=== PATIENT | male | born 1945 | race Hispanic/Latino ===

== ENCOUNTER 2017-05-23 06:55 | Day surgery (SDC) | payer BC, MEDICARE ==
[2017-05-21 16:55] VITALS: BP 116/69
[2017-05-21 16:59] LABS: BASOPHILS % (AUTO) 0.3 % (0.0-5.0); EOSINOPHILS % (AUTO) 1.8 % (0.0-8.0); HEMATOCRIT 44.1 % (42-54); MEAN CORPUSCULAR HEMOGLOBIN 27.5 pg (27.0-33.0); MEAN CORPUSCULAR VOLUME 81.1 fL (79-99); MONOCYTES % (AUTO) 9.1 % (3.0-13.0); NEUTROPHILS % (AUTO) 63.8 % (40.0-77.0); PLATELET COUNT (AUTO) 159 K/uL (130-400); RED BLOOD CELL COUNT(AUTO) 5.44 MIL/uL (4.50-6.20); RED CELL DISTRIBUTION WIDTH 15.6 % (11.0-15.5); WHITE BLOOD COUNT (AUTO) 8.3 K/uL (4.8-10.8)
[2017-05-21 17:05] LABS: CREATININE 1.2 mg/dL (0.5-1.5)
[2017-05-21 17:08] LABS: INR 1.08 (0.85-1.15); PARTIAL THROMBOPLASTIN TIME 30.6 SEC (26.3-35.5); PROTHROMBIN TIME 11.3 SEC (9.6-11.6)
[~2017-05-23] VITALS: Ht 182.9 cm; Wt 132.4 kg
[~2017-05-23 06:55] MED LIST: APIX5TAB PO; ASPI-1197 PO; CALC-1062 PO; DICLOFENAC PO; DRON400T2 PO; FURO40TA5 PO; METO25TA3 PO; MULT-1258 PO; OLME20TA10 PO; ROSU5TAB18 PO; SODIUM CHLORIDE 0.9% 1000ML 1,000 ML IV SCH
[2017-05-23 07:05] VITALS: BP 116/75
[2017-05-23] MEDS ORDERED: TYL3 PO (08:18)
[2017-05-23] MEDS ORDERED: PROPOFOL 10 MG/ML 20ML VIAL IV ONE (08:50)
[2017-05-23] MEDS ORDERED: LIDOCAINE HCL 1% 20 ML VIAL ONE (08:51)
[2017-05-23 09:15] VITALS: BP 102/62
[2017-05-23 09:30] VITALS: BP 99/64
== END 2017-05-23 10:27 | disposition home or self-care (01) ==
LOC: ENDO 06:55 → DAH 06:55 → ENDO 10:27
PROVIDERS: ATTEND Internal Medicine Cardiovascular Disease
DX: I48.1 Persistent atrial fibrillation (principal); I25.10 Atherosclerotic heart disease of native coronary artery without angina pectoris; I10 Essential (primary) hypertension; Z79.82 Long term (current) use of aspirin; Z79.01 Long term (current) use of anticoagulants; Z79.899 Other long term (current) drug therapy
CPT/HCPCS: 36415; 80048; 85025; 85610; 85730; 92960; 93005; A4606; J2704; J7030

== ENCOUNTER 2019-01-29 08:10 | Day surgery (SDC) | payer BC, MEDICARE ==
[~2019-01-29] VITALS: Ht 182.9 cm; Wt 129.3 kg
[2019-01-29] VITALS (13 sets, daily range): BP systolic 86–112; BP diastolic 61–78
[~2019-01-29 08:10] MED LIST changes: +AMIO200T5 PO; -DICLOFENAC PO; -DRON400T2 PO; +ROSU5TAB12 PO; -ROSU5TAB18 PO; -SODIUM CHLORIDE 0.9% 1000ML 1,000 ML IV SCH; +TYL3 PO
--- NOTE | 2019-01-29 08:40 | NUR ---
PATIENT ARRIVED PATIENT ARRIVED TO DAY PATIENT ACCOMPANIED BY SPOUSE (HORACIO). PATIENT AAOX3, RESPIRATIONS UNLABORED, VITAL SIGNS STABLE, DENIES ANY PAIN AT THIS TIME. PROCEDURE VERIFIED AND CONFIRMED WITH PATIENT. HOSPITAL ROUTINE EXPLAINED TO PATIENT AND SPOUSE AND BOTH VERBALIZED UNDERSTANDING. ALL QUESTIONS/CONCERNS ADDRESSED.
[2019-01-29 09:24] LABS: BASOPHILS % (AUTO) 0.3 % (0.0-5.0); EOSINOPHILS % (AUTO) 3.1 % (0.0-8.0); HEMATOCRIT 47.2 % (42-54); LYMPHOCYTES % (AUTO) 19.6 % (21.0-51.0); MEAN CORPUSCULAR HEMOGLOBIN 27.4 pg (27.0-33.0); MEAN CORPUSCULAR HGB CONC 33.3 g/dL (32.0-36.0); MEAN CORPUSCULAR VOLUME 82.2 fL (79-99); MONOCYTES % (AUTO) 8.9 % (3.0-13.0); NEUTROPHILS % (AUTO) 68.1 % (40.0-77.0); NUCLEATED RED BLOOD CELLS 0.1 % (0.0-0.19); PLATELET COUNT (AUTO) 139 K/uL (130-400); RED BLOOD CELL COUNT(AUTO) 5.74 MIL/uL (4.50-6.20); RED CELL DISTRIBUTION WIDTH 16.7 % (11.0-15.5); WHITE BLOOD COUNT (AUTO) 8.4 K/uL (4.8-10.8)
[2019-01-29 09:28] LABS: CREATININE 1.3 mg/dL (0.5-1.5); POTASSIUM 4.2 mmol/L (3.5-5.1)
[2019-01-29 09:32] LABS: INR 1.11 (0.85-1.15); PARTIAL THROMBOPLASTIN TIME 32.5 SEC (26.3-35.5); PROTHROMBIN TIME 11.6 SEC (9.6-11.6)
[2019-01-29] MEDS ORDERED: SERT100T12 PO (09:35)
[2019-01-29] MEDS ORDERED: CLON0.252 PO (09:36)
[2019-01-29] MEDS ORDERED: ASPI-1026 PO (09:37)
[2019-01-29] MEDS ORDERED: ESOM20CA31 PO (09:45)
[2019-01-29] MEDS ORDERED: FURO40TA5 PO (09:47)
[2019-01-29] MEDS ORDERED: SODIUM CHLORIDE 0.9% 1000ML 1,000 ML IV ONE (11:04)
[2019-01-29] MEDS ORDERED: SODIUM CHLORIDE 0.9% 1000ML 1,000 ML IV SCH (11:15)
[2019-01-29] MEDS ORDERED: PROPOFOL 10 MG/ML 20ML VIAL IV ONE (12:12)
--- NOTE | 2019-01-29 12:45 | NUR ---
CARDIOVERSION 1230 DR HURLEY IN ROOM, EXPLAINED PROCEDURE TO PATIENT AND PATIENT'S SPOUSE. 1232 TIMEOUT DONE BY CHARISMA ALARCON 1233 FIRST IV PUSH PROPOFOL ADMINISTERED BY DR MATTHEWS 1234 SHOCK ADMINISTERED [address] HURLEY 1234 SECOND IV PUSH PROPOFOL ADMINISTERED BY DR MATTHEWS 1235 SECOND SHOCK ADMINISTERED [address] HURLEY 1240 DR HURLEY LEFT PATIENT'S ROOM
--- NOTE | 2019-01-29 13:35 | NUR ---
DISCHARGE INSTRUCTIONS DISCHARGE INSTRUCTIONS PROVIDED TO PATIENT'S SPOUSE AND FOLLOW UP APPOINTMENT WELL. HANDOUTS PROVIDED AND INSTRUCTIONS GIVEN REGARDING POST SEDATION CARE AND POST CARDIOVERSION CARE. PATIENT'S SPOUSE VERBALIZED UNDERSTANDING. ALL QUESTIONS/CONCERNS ADDRESSED.
--- NOTE | 2019-01-29 13:50 | NUR ---
PATIENT DISCHARGED FROM FACILITY VIA WHEELCHAIR BY BRITNI VALENTINO. PATIENT ASSISTED INTO PRIVATE VEHICLE DRIVEN BY SPOUSE
== END 2019-01-29 13:50 | disposition home or self-care (01) ==
LOC: DAH 08:10
PROVIDERS: ATTEND Internal Medicine Cardiovascular Disease
DX: I48.0 Paroxysmal atrial fibrillation (principal); I10 Essential (primary) hypertension; E78.5 Hyperlipidemia, unspecified; E66.9 Obesity, unspecified; G47.33 Obstructive sleep apnea (adult) (pediatric); C61 Malignant neoplasm of prostate; F41.9 Anxiety disorder, unspecified; Z68.38 Body mass index [BMI] 38.0-38.9, adult; Z79.82 Long term (current) use of aspirin; Z79.899 Other long term (current) drug therapy; Z79.01 Long term (current) use of anticoagulants; Z98.890 Other specified postprocedural states; Z95.0 Presence of cardiac pacemaker; Z87.01 Personal history of pneumonia (recurrent); Z82.49 Family history of ischemic heart disease and other diseases of the circulatory system; Z82.3 Family history of stroke
CPT/HCPCS: 36415; 80048; 85025; 85610; 85730; 92960; 93005; A4215; A4216; A4221; A4222; A4223 ×3; A4606; A4663; J2704; J7030; 99156

== ENCOUNTER 2024-04-26 09:32 | Inpatient (IN) | payer MEDICARE ==
[~2024-04-26] VITALS: Ht 188 cm; Wt 124.3 kg
[~2024-04-26 09:32] MED LIST changes: +AEC81 PO; -AMIO200T5 PO; -ASPI-1197 PO; -FURO40TA5 PO; +LEVO25CA4 PO; +METO2.5T2 PO; -METO25TA3 PO; +METO5TAB7 PO; -OLME20TA10 PO; +OLME20TA73 PO; +POTA-200 PO; -ROSU5TAB12 PO; +ROSU5TAB51 PO; +SPIR25TA6 PO; +TAFA61CA PO; +TORS20TA4 PO; -TYL3 PO
[2024-04-26 10:06] LABS: BASOPHILS # (AUTO) 0.04 K/uL (0.00-0.20); BASOPHILS % (AUTO) 0.4 % (0.0-5.0); EOSINOPHILS # (AUTO) 0.12 K/uL (0.00-0.70); EOSINOPHILS % (AUTO) 1.2 % (0.0-8.0); HEMATOCRIT 36.5 % (42-54); IMMATURE GRANULOCYTE ABSOLUTE 0.06 K/uL (0-1); LYMPHOCYTES # (AUTO) 1.5 K/uL (1.0-4.8); LYMPHOCYTES % (AUTO) 14.4 % (21.0-51.0); MEAN CORPUSCULAR HGB CONC 29.3 g/dL (32.0-36.0); MEAN CORPUSCULAR VOLUME 68.2 fL (79-99); MONOCYTES # (AUTO) 1.1 K/uL (0.1-1.0); MONOCYTES % (AUTO) 10.4 % (3.0-13.0); NEUTROPHILS # (AUTO) 7.5 K/uL (1.8-7.7); PLATELET COUNT (AUTO) 219 K/uL (130-400); RED BLOOD CELL COUNT(AUTO) 5.35 MIL/uL (4.50-6.20); RED CELL DISTRIBUTION WIDTH 20.4 % (11.0-15.5); WHITE BLOOD COUNT (AUTO) 10.2 K/uL (4.8-10.8)
[2024-04-26 10:16] LABS: CREATININE 1.5 mg/dL (0.5-1.3); POTASSIUM 4.5 mmol/L (3.5-5.1)
[2024-04-26] MEDS: morPHINE 2 MG SYG IVP ONE (10:42)
[2024-04-26] MEDS: furoSEMIDE 40MG VIAL IV ONE (10:43)
[2024-04-26 10:46] LABS: B-TYPE NATRIURETIC PEPTIDE 223 pg/mL (0-100)
--- NOTE | 2024-04-26 10:53 | HMCIMG ---
CHEST 1VW CLINICAL HISTORY: CHEST PAIN COMPARISON: 06/27/2022 TECHNIQUE: Single view of the chest was obtained. FINDINGS: Lungs are clear. Cardiac size is enlarged but stable. The bony structures and pacemaker are unchanged. IMPRESSION: Cardiomegaly.
--- NOTE | 2024-04-26 11:01 | ERN ---
ED Note History of Present Illness Stated Complaint: CP, NAUSEA Chief Complaint: Chest Pain Time Seen by MD: 09:35 Dictation: 79-year-old male with a history of CABG and pacemaker presents to the ED for evaluation of chest pain onset 4 days ago. Patient reports shortness of breath, nausea, but denies any vomiting or other associated symptoms at this time. As per family, patient was seen at [facility] 4 days ago where he had EKG and lab work performed which were normal and was discharged home, but mentioned patient has been complaining of chest pain. [employer] Super[employer]- [facility] Allergies: Coded Allergies: No Known Drug Allergies (Verified Allergy, Unknown, 11/26/17) triamcinolone (Unverified Allergy, Unknown, 11/26/17) Home Meds Reported Medications Aspirin (ASPIRIN 81 MG ECTAB) 81 Mg Ectab, 81 MG PO DAILY, TAB.EC 06/27/22 Potassium Chloride (Potassium Chloride) 10 Meq Tab.er.prt, 10 MEQ PO BID 06/27/22 Levothyroxine Sodium (Levothyroxine) 25 Mcg Capsule, 25 MCG PO ACBKFST, CAP 06/27/22 Metolazone (Metolazone) 2.5 Mg Tablet, 2.5 MG PO QWEEK, TAB 06/27/22 Spironolactone (Spironolactone) 25 Mg Tablet, 25 MG PO DAILY, TAB 06/27/22 Metolazone (Metolazone) 5 Mg Tablet, 5 MG PO DAILY PRN for WEIGHT GAIN, TAB 06/27/22 Torsemide (Torsemide) 20 Mg Tablet, 40 MG PO DAILY, TAB 06/27/22 Tafamidis (Vyndamax) 61 Mg Capsule, 61 MG PO DAILY, CAP 06/27/22 Calcium Carbonate/Vitamin D3 (Caltrate 600 + D Soft Chew Tab) 1 Each Tab.chew, 2 EACH PO DAILY, TAB.CHEW 04/24/16 Apixaban (Eliquis) 5 Mg Tablet, 5 MG PO BID, TAB 04/24/16 Rosuvastatin Calcium (Rosuvastatin Calcium) 5 Mg Tablet, 5 MG PO DAILYDINNER, TAB 01/02/16 Multivits-Min/FA/Lycopene/Lut (Centrum Silver Tablet) 1 Each Tablet, 1 EACH PO DAILY, TAB 01/02/16 Olmesartan Medoxomil (Benicar) 20 Mg Tablet, 20 MG PO DAILY, TAB 11/23/13 Past Medical History Past Medical History: A-Fib, High Cholesterol, Heart Disease, Hypertension, Prostatitis Additional Past Medical Hx: THYROID, HX OF PROSTATE CA, AORTIC STENOSIS, GOUT Surgical History: Pacer/AICD Surgical History Other: KNEE, SHOULDER, BACK Review of System Dictation Constitutional: Negative for fever,chills, and weight loss Eyes: Negative for injury, pain,redness, and discharge ENT: Negative for injury,pain or swelling Cardiovascular: Positive for chest pain negative I palpitations, and edema Respiratory: Negative for shortness of breath, cough, and wheezing, Abdomen/GI: Negative for abdominal pain, nausea, vomiting, diarrhea, and constipation Back: Negative for injury and pain : Negative for injury, bleeding and discharge MS/Extremity: Negative for injury and deformity Skin: Negative for rash, and discoloration Neuro: Negative for headache, weakness, numbness, tingling, and seizure Psych: Negative for suicide ideation, homicidal ideation, and hallucinations Initial Vital Sign VS Vital Signs Date Time Temp Pulse Resp B/P (MAP) Pulse Ox O2 Delivery O2 Flow Rate FiO2 04/26/24 09:33 98.1 53 16 112/59 99 Room Air 0 04/26/24 09:39 21 Physical Exam Dictation General: awake, alert, patient appears uncomfortable Head/Face: Normocephalic, atraumatic Eyes: PERRL, EOMI, vision at baseline ENT: oral cavity clear, TMs clear, no signs of infection Neck: Trachea midline, supple, no nuchal rigidity Cardiovascular: RRR, normal S1/S2, No MRGs, no JVD Respiratory: Diminished breath sounds at bases, bilateral crackles Abdomen: Soft, non-tender, non-distended, normal bowel sounds, no guarding or rebound. Skin: Warm, dry, normal turgor, no rash MS/Extremity: Pulses equal, no cyanosis, neurovascular intact, FROM Neuro: COAx4, GCS 15, strength 5/5, CN 2-12 intact, normal cerebellar exam, normal gait, Psych: Normal behavior, mood, and affect normal Results (Laboratory/Radiology) Laboratory/Radiology Laboratory Tests Test 04/26/24 09:57 04/26/24 10:18 04/26/24 11:35 White Blood Count 10.2 K/uL (4.8-10.8) Red Blood Count 5.35 MIL/uL (4.50-6.20) Hemoglobin 10.7 g/dL (14.0-18.0) L Hematocrit 36.5 % (42-54) L Mean Corpuscular Volume 68.2 fL (79-99) L Mean Corpuscular Hemoglobin 20.0 pg (27.0-33.0) L Mean Corpuscular Hemoglobin Concent 29.3 g/dL (32.0-36.0) L Red Cell Distribution Width 20.4 % (11.0-15.5) H Platelet Count 219 K/uL (130-400) Mean Platelet Volume fL (7.5-10.5) Immature Granulocyte % (Auto) 0.6 % (0-1) Neutrophils (%) (Auto) 73.0 % (40.0-77.0) Lymphocytes (%) (Auto) 14.4 % (21.0-51.0) L Monocytes (%) (Auto) 10.4 % (3.0-13.0) Eosinophils (%) (Auto) 1.2 % (0.0-8.0) Basophils (%) (Auto) 0.4 % (0.0-5.0) Neutrophils # (Auto) 7.5 K/uL (1.8-7.7) Lymphocytes # (Auto) 1.5 K/uL (1.0-4.8) Monocytes # (Auto) 1.1 K/uL (0.1-1.0) H Eosinophils # (Auto) 0.12 K/uL (0.00-0.70) Basophils # (Auto) 0.04 K/uL (0.00-0.20) Absolute Immature Granulocyte (auto 0.06 K/uL (0-1) Nucleated Red Blood Cells 0.0 % (0.0-0.19) Red Blood Cell Morphology See comments Sodium Level 136 mmol/L (136-145) Potassium Level 4.5 mmol/L (3.5-5.1) Chloride Level 99 mmol/L (101-111) L Carbon Dioxide Level 30 mmol/L (21-32) Blood Urea Nitrogen 38 mg/dL (7-18) H Creatinine 1.5 mg/dL (0.5-1.3) H Glomerular Filtration Rate Calc 47 mL/min (>90) Random Glucose 162 mg/dL (70-105) H Total Calcium 9.7 mg/dL (8.5-10.1) Total Creatine Kinase 55 U/L (21-232) B-Type Natriuretic Peptide 223 pg/mL (0-100) H Troponin I < 0.05 ng/mL (0.00-0.05) Urine Color LIGHT-YELLOW (YELLOW) Urine Appearance CLEAR (CLEAR) Urine pH 6.5 (5.0-8.0) Urine Specific [place] 1.007 (1.001-1.031) Urine Protein NEGATIVE mg/dL (NEGATIVE) Urine Glucose (UA) NEGATIVE mg/dL (NEGATIVE) Urine Ketones NEGATIVE mg/dL (NEGATIVE) Urine Occult Blood NEGATIVE (NEGATIVE) Urine Nitrate NEGATIVE (NEGATIVE) Urine Bilirubin NEGATIVE mg/dL (NEGATIVE) Urine Urobilinogen 0.2 mg/dL (0.2-1.0) Urine Leukocyte Esterase NEGATIVE Rosi/uL Labs Reviewed?: Yes EKG Comment: EKG 04/26/2024 time 9:39 a.m. ventricular rate 82, [place] 58, QRS D 166, QT 403. Ventricular paced complexes. Anterior T-waves. No STEMI Ultrasound Comment: REASON: CHEST PAIN ORDERING PHYSICIAN: LENY JIMENEZ MD PROCEDURE: CXR1VW - CHEST 1VW CHEST 1VW CLINICAL HISTORY: CHEST PAIN COMPARISON: 06/27/2022 TECHNIQUE: Single view of the chest was obtained. FINDINGS: Lungs are clear. Cardiac size is enlarged but stable. The bony structures and pacemaker are unchanged. IMPRESSION: Cardiomegaly. DICTATED BY: SONJA HARDING DO DATE: 04/26/24 1051 ED Course ED Course Orders Procedure Category Date Status Time Vital Signs Per CPOE 04/26/24 Transmitted Routine 09:38 B-Type Natriuretic LAB 04/26/24 Complete Peptide 09:38 Chest 1vw RAD 04/26/24 Resulted 09:38 12 Lead Ekg Tracing- EKG 04/26/24 Logged Technical 09:38 Oxygen By Nc/Pulse Ox CPOE 04/26/24 Transmitted 09:38 Maintain Iv CPOE 04/26/24 Transmitted 09:38 Iv Insertion CPOE 04/26/24 Transmitted 09:38 Cardiac Monitoring CPOE 04/26/24 Transmitted 09:38 Pulse Oximetry With CPOE 04/26/24 Transmitted Vs And Prn 09:38 Cbc With Differential LAB 04/26/24 Complete 09:38 Activity: Br W/Brp CPOE 04/26/24 Transmitted With Assist 09:38 Creatine Kinase, Total LAB 04/26/24 Complete 09:38 Urinalysis Profile LAB 04/26/24 Complete 09:38 Troponin Poc Order LAB 04/26/24 Complete Only 09:38 Bedside Troponin-I LAB.ER 04/26/24 In Process (Poc) 09:38 Basic Metabolic Panel LAB 04/26/24 Complete 09:38 Furosemide 40mg Vial PHA 04/26/24 Complete (Lasix 40mg Vial) 10:30 Morphine 2mg Syg PHA 04/26/24 Complete (Morphine 2mg Syg) 10:30 Vital Signs Date Time Temp Pulse Resp B/P (MAP) Pulse Ox O2 Delivery O2 Flow Rate FiO2 04/26/24 12:39 97.9 53 20 118/77 98 Room Air* 0 21 04/26/24 10:16 98.1 89 23 126/73 100 Nasal Cannula* 2 28 04/26/24 09:39 98.1 53 16 112/59 99 Room Air* 0 21 04/26/24 09:33 98.1 53 16 112/59 99 Room Air 0 HEART Score Response (Comments) Value History: Moderate suspicion (+1) 1 EKG: Repolarization changes 1 Age: > 65yrs (+2) 2 Risk Factors: No known risk factors (0) 0 Initial Troponin: Normal limit (0) 0 HEART Score Risk: Mod Risk for MACE (4-6) Total 4 Medical Decision Making MDM MDM : Differential diagnosis: Chest pain, unstable angina, rule out ACS 1221- Patient is leaving AMA 1238- Patient changed his mind and will stay for admission 1258- Dr. Parker consult, accepts patient for admission Rationale: Tests considered and ordered secondary to shared decision making include: labs, ECG and radiology Risk of complication and/or morbidity or mortality of patient management: None Medications-Per medication reconciliation Need for hospitalization: Patient does meet criteria for hospitalization. Need for emergency major/minor surgery: No There are no social concerns with this patient. I independently interpreted the test that were performed, results were reviewed by me and considered findings on radiology if ordered. Medical management and examination interpretation discussions were had by me with other qualified healthcare professionals as indicated for the patient's care. DX & DISP Disposition: Inpatient Decision to Admit Date: Apr 26, 2024 Decision to Admit Time: 13:02 Departure Impression: Primary Impression: Chest pain Additional Impression: Rule out ACS Condition: Against Medical Advice Referrals: NONE (PCP) LENY JIMENEZ MD Apr 26, 2024 11:01
[2024-04-26 11:42] LABS: APPEARANCE,URINE CLEAR (CLEAR); BILIRUBIN,URINE NEGATIVE (NEGATIVE); GLUCOSE, URINE (UA) NEGATIVE (NEGATIVE); KETONES,URINE NEGATIVE (NEGATIVE); LEUKOCYTE ESTERASE ,URINE NEGATIVE Leu/uL (NEGATIVE); NITRATE,URINE NEGATIVE (NEGATIVE); OCCULT BLOOD,URINE NEGATIVE (NEGATIVE); PH,URINE 6.5 (5.0-8.0); PROTEIN,URINE NEGATIVE (NEGATIVE); UROBILINOGEN,URINE 0.2 mg/dL (0.2-1.0)
[2024-04-26 11:43] LABS: ADD UA MICROSCOPIC NO; COLOR,URINE LIGHT-YELLOW (YELLOW)
--- NOTE | 2024-04-26 12:40 | NUR ---
PATIENT STATES HE WANTS TO GO AMA. DR LIVINGSTON MADE AWARE. PATIENT DECIDED TO STAY. CHARGE NURSE RADHA ALSO SPOKE WITH PATIENT
[2024-04-26] MEDS ORDERED: ondanSETRON 4MG INJ IVP PRN (14:00)
[2024-04-26] MEDS ORDERED: BUDESONIDE 0.5 MG/2 ML INH IH SCH (14:00)
[2024-04-26] MEDS ORDERED: acetaMINOPHEN 325 MG TAB PO PRN ×2 (14:00→14:30)
[2024-04-26] MEDS ORDERED: NITROGLYCERIN 0.4 MG SL TAB SL PRN (14:30)
[2024-04-26] MEDS ORDERED: TORS20TA4 PO (14:33)
[2024-04-26] MEDS ORDERED: ASPI-1443 PO (14:33)
[2024-04-26] MEDS ORDERED: METO25TA6 PO (14:33)
[2024-04-26] MEDS ORDERED: SPIR25TA6 PO (14:33)
[2024-04-26] MEDS ORDERED: ROSU5TAB51 PO (14:33)
[2024-04-26] MEDS ORDERED: METO2.5T2 PO (14:33)
[2024-04-26] MEDS ORDERED: POTA-202 PO (14:33)
[2024-04-26] MEDS: cefTRIAXone 1G VIAL IVPB SCH (14:53)
[2024-04-26] MEDS: PANTOPrazole 40 MG/VIAL IVP SCH (14:53)
[2024-04-26 15:19] LABS: SARS-CoV-2, RNA, NAAT NEGATIVE SARS CoV-2 (NEGATIVE)
[2024-04-26 15:25] LABS: INFLUENZA TYPE A Negative For Type A (NEGATIVE); INFLUENZA TYPE B Negative For Type B (NEGATIVE)
--- NOTE | 2024-04-26 16:09 | CONS ---
[facility] CARDIOLOGY CONSULTATION NOTE Date Patient Seen: Apr 26, 2024 Time of Visit: 16:01 Requesting Physician: [ ] Reason for Consultation: [ ] History of Present Illness: [For about four days the patient has been experiencing vague pain in his chest. This began as a retrosternal/right parasternal pain which was intense for about half a day, then he had a similar residual discomfort that has persisted for three more days. Pain is not exacerbated by deep inspiration, change of position, cough, or any other activity or lack of activity. Patient has been sedentary because he does not have much energy and experiences overwhelming fatigue. 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 Patient also has a history of paroxysmal atrial fibrillation. 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 [Denies] alcohol consumption. [Denies] illicit drug use Home Meds: [ ] Current Meds: [ ] Review of Systems: CONST: [No fever, fatigue, or weight changes.] EYES: [No recent vision problems.] ENT: [No congestion, ear pain, or sore throat.] C/V: [Admits chest pain, denies palpitations, no change in chronic edema.] RESP: [No cough, congestion, reports wheezing, chronically ill patient minimizes complaints of shortness of breath.] GI: [No abdominal pain, nausea, vomiting, constipation, or diarrhea.] : [No incontinence or dysuria.] SKIN: [Chronic stasis edema both lower extremities.] NEURO: [No headache, focal numbness or weakness, dizziness, or seizures. Denies stroke or TIA] PSYCH: [No depression or anxiety.] HEME: [No abnormal bruising or bleeding.] LYMPH: [No swollen glands.] Physical Examination: GENERAL: [Appears mildly breathless and after minimal activity exhibits paradoxical respiration but is oriented and alert and cooperative.] HEAD: [Normal with no signs of head trauma.] EYES: [PERRLA, EOMI, conjunctiva and sclera normal.] ENT: [Hearing grossly intact.] NECK: [JVD to the angle of the mandible in a 30 degree upright position Normal carotid upstrokes without bruits.] LUNGS: [Scattered expiratory wheezing and rhonchi, no rales, diffusely diminished breath sounds.] HEART: [Normal rate and rhythm. Normal S1 and S2 without mumurs, gallop or rub.] VASC: [2+ bipedal brawny edema.] ABD: [Bowel sounds normal, soft, nontender, no masses, no organomegaly. No audible bruits. Abdomen protuberant but can not discern presence or absence of ascites] : [Not examined] LYMPH: [Bipedal lymphadenopathy with thickened, rough, red and warm skin.] EXT: [No clubbing, cyanosis but 2+ brawny edema.] SKIN: [Chronic stasis changes with cellulitis both lower extremities from the calf down, no open ulcers.] NEURO: [Awake, alert, and oriented x3. .] Vital Signs (last 8hr) Date Time Temp Pulse Resp B/P (MAP) Pulse Ox O2 Delivery O2 Flow Rate FiO2 04/26/24 15:06 97.7 59 20 112/55 100 Room Air* 0 21 04/26/24 12:39 97.9 53 20 118/77 98 Room Air* 0 21 04/26/24 10:16 98.1 89 23 126/73 100 Nasal Cannula* 2 28 04/26/24 09:39 98.1 53 16 112/59 99 Room Air* 0 21 04/26/24 09:33 98.1 53 16 112/59 99 Room Air 0 Laboratory: [ ] Hematology Labs: Test 04/26/24 09:57 Range/Units White Blood Count 10.2 4.8-10.8 K/uL Red Blood Count 5.35 4.50-6.20 MIL/uL Hemoglobin 10.7 L 14.0-18.0 g/dL Hematocrit 36.5 L 42-54 % Mean Corpuscular Volume 68.2 L 79-99 fL Mean Corpuscular Hemoglobin 20.0 L 27.0-33.0 pg Mean Corpuscular Hemoglobin Concent 29.3 L 32.0-36.0 g/dL Red Cell Distribution Width 20.4 H 11.0-15.5 % Platelet Count 219 130-400 K/uL Mean Platelet Volume 7.5-10.5 fL Immature Granulocyte % (Auto) 0.6 0-1 % Neutrophils (%) (Auto) 73.0 40.0-77.0 % Lymphocytes (%) (Auto) 14.4 L 21.0-51.0 % Monocytes (%) (Auto) 10.4 3.0-13.0 % Eosinophils (%) (Auto) 1.2 0.0-8.0 % Basophils (%) (Auto) 0.4 0.0-5.0 % Neutrophils # (Auto) 7.5 1.8-7.7 K/uL Lymphocytes # (Auto) 1.5 1.0-4.8 K/uL Monocytes # (Auto) 1.1 H 0.1-1.0 K/uL Eosinophils # (Auto) 0.12 0.00-0.70 K/uL Basophils # (Auto) 0.04 0.00-0.20 K/uL Absolute Immature Granulocyte (auto 0.06 0-1 K/uL Nucleated Red Blood Cells 0.0 0.0-0.19 % Red Blood Cell Morphology See comments Chemistry Labs: Test 04/26/24 10:18 04/26/24 09:57 Range/Units Troponin I < 0.05 0.00-0.05 ng/mL Sodium Level 136 136-145 mmol/L Potassium Level 4.5 3.5-5.1 mmol/L Chloride Level 99 L 101-111 mmol/L Carbon Dioxide Level 30 21-32 mmol/L Blood Urea Nitrogen 38 H 7-18 mg/dL Creatinine 1.5 H 0.5-1.3 mg/dL Glomerular Filtration Rate Calc 47 >90 mL/min Random Glucose 162 H 70-105 mg/dL Total Calcium 9.7 8.5-10.1 mg/dL Total Creatine Kinase 55 21-232 U/L B-Type Natriuretic Peptide 223 H 0-100 pg/mL Diagnostics / Radiology: [Copy/Paste Echos/Imaging Report here] Assessment: [My best impression is that the patient has 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 Chest x-ray is difficult to interpret but there may be cardiomegaly and there appears to be vascular redistribution and possibly left basilar infiltrates. ] Plan: [I concur with current diuretic plan and would follow up with echocardiogram tomorrow. The chest pain is probably from some combination of chest wall pain and pulmonary venous hypertension, but if it does not pass or if we see evidence of ischemia otherwise we may perform additional testing. ] DARION RANDLE MD Apr 26, 2024 16:09
[2024-04-26] MEDS: furoSEMIDE 20MG VIAL IV SCH (16:10)
[2024-04-26 16:26] LABS: HEMOGLOBIN A1C 7.3 % (4.0-6.0)
[2024-04-26 16:31] LABS: % IRON SATURATION 4.2 % (30-44)
[2024-04-26 16:39] VITALS: RESP 18; O2SAT 98
[2024-04-26 16:45] LABS: CREATININE 1.4 mg/dL (0.5-1.3); MAGNESIUM 2.1 mg/dL (1.80-2.40); POTASSIUM 3.8 mmol/L (3.5-5.1); THYROID STIMULATING HORMONE 4.29 uIU/mL (0.36-3.74)
[2024-04-26 19:46] VITALS: PULSE 79; RESP 18; O2SAT 99
[2024-04-26] MEDS: IpraTROPium 0.5 MG/2.5 ML INH IH SCH (19:46)
--- NOTE | 2024-04-26 20:02 | HMCIMG ---
US VENOUS DOPPLER BILATERAL REASON: lower extremity erythema, r/o any DVT COMPARISON: None Technique: Bilateral venous doppler ultrasound was performed with spectral analysis and color flow imaging technique. FINDINGS: There is a normal appearance of the common femoral, deep femoral, the profunda femoris and popliteal veins. Proximal calf veins appear normal as well. There is normal response to compression and augmentation. There is no evidence of deep venous thrombosis. IMPRESSION: Normal bilateral lower extremity venous Doppler ultrasound.
--- NOTE | 2024-04-26 20:20 | HP ---
[facility] PHYS[facility] Date of Service: Apr 26, 2024 Time of Service: 20:04 HISTORY OF PRESENT ILLNESS: [ Date of service: 04/26/2024, patient was seen in ER room 17 79-year-old male with underlying history of cardiac amyloidosis, history of severe aortic stenosis status post bioprosthetic aortic valve replacement with concomitant Maze Ga procedure and left atrial appendage ligation in 02/2008, . Paroxysmal atrial fibrillation, history of pacemaker placement, history of ectatic aortic root measuring 5.[address] from 09/2018, diastolic heart failure who presented to the ER for further evaluation of right-sided chest pain with associated shortness of breath.. Patient reports that he has been having right-sided chest pain ongoing for the past four days. He was seen in [facility] ER in [place] about four days ago and was told cardiac workup was negative. Patient continued to have intermittent episodes of right retrosternal pain which she described as moderate in intensity. Denies any associated pleuritic chest pain or associated radiation to the jaw. Patient has history of cardiac amyloidosis and is followed in [facility]. He is also followed by Dr. Brantley in [facility]. Patient is on outpatient diuretics with spironolactone, torsemide and Zaroxolyn 3 times a week. Patient's reports that patient has dyspnea on minimal exertion and she has also noticed that patient has been having increasing edema of the lower extremities. Patient does have history of chronic lower extremity edema with chronic venous stasis and redness. Reports having significant fatigue with exertional activities. Denies any episodes of bleeding or syncopal episode. On presentation to the hospital, patient was noted to be afebrile with T-max of 97.9 F, heart rate in the 50s-70's, one blood pressure of 118/77. Chest x-ray showed mild pulmonary vascular congestion. Labs [place] [address], hemoglobin 10.7, platelet count of 318190. CMP remarkable for sodium of 136, potassium 4.5, chloride of 99, creatinine 1.5, BNP of 223. Patient will be admitted for further evaluation of chest pain, acute diastolic heart failure exacerbation in the setting of cardiac amyloidosis, concern for developing cellulitis of the lower extremity. Patient will be started on IV diuretics and IV antibiotics. Patient also noted to have mild audible wheezing likely secondary to pulmonary vascular condition. Patient's case was discussed with Cardiology and we will see how he progresses in the next 48 hours. Discussed with patient's son who is a practicing operations manager assistant about plan of care as well as with patient's . REVIEW OF SYSTEMS CONSTITUTIONAL: fatigue, malaise NEUROLOGICAL: Denies headache, amaurosis fugax, motor weakness, sensory deficit, vertigo/spinning sensation, gait abnormalities, or tremors. ENT: No hearing loss, otalgia, otorrhea, rhinitis, rhinorrhea, hoarseness, or sore throat. CARDIOVASCULAR: SOB, PERDOMO, Chest pain, lower extremity edema PULMONARY: Denies any shortness of breath, cough, phlegm/sputum, hemoptysis, pleuritic chest pain. SLEEP: Denies morning headaches, daytime somnolence or napping. Denies difficulty falling asleep, staying asleep, waking from sleep. Denies knowledge of snoring. GASTROINTESTINAL: Denies any type of dysphagia to either liquids or solids. Denies nausea, vomiting, pyrosis, early satiety, abdominal pain, diarrhea, constipation, or changes in stool consistency or caliber. Denies coffee-ground emesis, hematemesis, hematochezia, or melanotic stools. GENITOURINARY: Denies frequency, urgency, nocturia, hematuria or incontinence (Storage/Irritative symptoms.) Low urinary stream, straining to void, urinary intermittency or hesitancy, splitting of the voiding stream, terminal dribbling. ENDOCRINOLOGIC: Denies polyuria, polydipsia, polyphagia or heat/cold intolerances. HEMATOLOGIC: Denies thrombophilia/previous clots, or coagulopathy/bleeding disorders. ONCOLOGIC: Denies personal history of malignancy. DERMATOLOGIC: erythema of bilateral lower extremities PSYCHIATRIC: Denies any suicidal or homicidal ideation. Denies hallucinations. PAST MEDICAL HISTORY: Hypothyroidism Amyloidosis Amyloid induced cardiomyopathy History of diastolic heart failure Atrial fibrillation with RVR Aortic stenosis s/p aortic valve replacement Dyslipidemia Prostate cancer s/p radiation therapy, in remission History of pacemaker placement History of paroxysmal atrial fibrillation History of ectatic aortic root measuring 5.[address] chest on 09/2018 PAST SURGICAL HISTORY: Bilateral knee replacement Aortic valve replacement IVC filter placement Gastric sleeve surgery PAST SOCIAL HISTORY: Denies smoking, drinking or illicit drug use. Independent with ADLs, needs assistance with IADLs. Patient's son is a practicing operations manager assistant Coded Allergies: No Known Drug Allergies (Verified Allergy, Unknown, 11/26/17) triamcinolone (Unverified Allergy, Unknown, 11/26/17) PHYSICAL EXAM GENERAL APPEARANCE: The patient is awake, alert, and oriented, in no acute cardiopulmonary distress. NEUROLOGICAL: Cranial nerves II-XII grossly intact. Motor is 5/5 in bilateral upper and lower extremities proximal to distal. No sensory deficits. HEENT: Face is symmetric. Pupils are equal and reactive. Extraocular movements are intact. NECK: Supple. No JVD. No thyromegaly. No submental, submandibular, pre- /postauricular, occipital or supraclavicular lymphadenopathy. CHEST: Normal chest expansion. No Telemetry. LUNGS: Crackles noted at bilateral lung bases with rhonchorous breath sounds CARDIOVASCULAR: Regular. S1 and S2 normal. No appreciable rubs, murmurs or gallops. ABDOMEN: Soft, nontender, and nondistended. There is no rebound, voluntary guarding, or rigidity. : Deferred. No Tucker. EXTREMITIES: 2+ pitting edema of the bilateral lower extremity with changes of venous status and erythema SKIN: No skin breakdown. Vital Sign (Last 24 Hours) 04/26/24 19:56 Temp 97.3 Pulse 84 Resp 17 B/P (MAP) 118/71 Pulse Ox 100 O2 Delivery Room Air* O2 Flow Rate 0 FiO2 21 LABS: Laboratory: Test 04/26/24 16:09 04/26/24 15:00 04/26/24 11:35 04/26/24 10:18 Range/Units Sodium Level 137 136-145 mmol/L Potassium Level 3.8 3.5-5.1 mmol/L Chloride Level 98 L 101-111 mmol/L Carbon Dioxide Level 33 H 21-32 mmol/L Blood Urea Nitrogen 36 H 7-18 mg/dL Creatinine 1.4 H 0.5-1.3 mg/dL Glomerular Filtration Rate Calc 51 >90 mL/min Random Glucose 106 H 70-105 mg/dL Hemoglobin A1c 7.3 H 4.0-6.0 % Estimated Average Glucose (eAG) 163 H 70-126 mg/dL Total Calcium 9.1 8.5-10.1 mg/dL Magnesium Level 2.10 1.80-2.40 mg/dL Iron Level 17 #L 65-175 mcg/dL Total Iron Binding Capacity 404 250-450 mcg/dL Percent Iron Saturation 4.2 L 30-44 % Ferritin 16 L 30-400 ng/mL Total Creatine Kinase 51 21-232 U/L Troponin I High Sensitivity 32.2 4-75 ng/L C-Reactive Protein, Quantitative 4.30 H 0.5-3.0 mg/L Procalcitonin < 0.05 L 0.05-0.5 ng/mL Thyroid Stimulating Hormone (TSH) 4.29 H 0.36-3.74 uIU/mL Influenza Type A Antigen Negative For Type A NEGATIVE Influenza Type B Antigen Negative For Type B NEGATIVE SARS-CoV-2, RNA, NAAT NEGATIVE SARS CoV-2 NEGATIVE Urine Color LIGHT-YELLOW YELLOW Urine Appearance CLEAR CLEAR Urine pH 6.5 5.0-8.0 Urine Specific [place] 1.007 1.001-1.031 Urine Protein NEGATIVE NEGATIVE mg/dL Urine Glucose (UA) NEGATIVE NEGATIVE mg/dL Urine Ketones NEGATIVE NEGATIVE mg/dL Urine Occult Blood NEGATIVE NEGATIVE Urine Nitrate NEGATIVE NEGATIVE Urine Bilirubin NEGATIVE NEGATIVE mg/dL Urine Urobilinogen 0.2 0.2-1.0 mg/dL Urine Leukocyte Esterase NEGATIVE NEGATIVE Rosi/uL Troponin I < 0.05 0.00-0.05 ng/mL Test 04/26/24 09:57 Range/Units White Blood Count 10.2 4.8-10.8 K/uL Red Blood Count 5.35 4.50-6.20 MIL/uL Hemoglobin 10.7 L 14.0-18.0 g/dL Hematocrit 36.5 L 42-54 % Mean Corpuscular Volume 68.2 L 79-99 fL Mean Corpuscular Hemoglobin 20.0 L 27.0-33.0 pg Mean Corpuscular Hemoglobin Concent 29.3 L 32.0-36.0 g/dL Red Cell Distribution Width 20.4 H 11.0-15.5 % Platelet Count 219 130-400 K/uL Mean Platelet Volume 7.5-10.5 fL Immature Granulocyte % (Auto) 0.6 0-1 % Neutrophils (%) (Auto) 73.0 40.0-77.0 % Lymphocytes (%) (Auto) 14.4 L 21.0-51.0 % Monocytes (%) (Auto) 10.4 3.0-13.0 % Eosinophils (%) (Auto) 1.2 0.0-8.0 % Basophils (%) (Auto) 0.4 0.0-5.0 % Neutrophils # (Auto) 7.5 1.8-7.7 K/uL Lymphocytes # (Auto) 1.5 1.0-4.8 K/uL Monocytes # (Auto) 1.1 H 0.1-1.0 K/uL Eosinophils # (Auto) 0.12 0.00-0.70 K/uL Basophils # (Auto) 0.04 0.00-0.20 K/uL Absolute Immature Granulocyte (auto 0.06 0-1 K/uL Nucleated Red Blood Cells 0.0 0.0-0.19 % Red Blood Cell Morphology See comments B-Type Natriuretic Peptide 223 H 0-100 pg/mL Current Medications Medications (Trade) Dose Ordered Sig/Frantz Route PRN Reason Start Time Stop Time Status Last Admin Dose Admin Acetaminophen (TYLenol 325MG TAB) 650 mg Q6H PRN PO MILD PAIN (1-3) 04/26/24 14:00 05/26/24 13:59 Acetaminophen (TYLenol 325MG TAB) 650 mg Q6H PRN PO MILD PAIN (1-3) 04/26/24 14:30 05/26/24 14:29 Aspirin (Aspirin 81mg Ec Tab) 81 mg DAILY PO 04/27/24 09:00 05/27/24 08:59 Atorvastatin Calcium (LIPItor 20MG) 20 mg AM PO 04/27/24 09:00 05/27/24 08:59 Budesonide (Pulmicort 0.5 Mg/2ml) 0.5 mg Q12H IH 04/26/24 14:00 04/26/24 14:17 DC Ceftriaxone Sodium (ROCEphine 1G INJ) 1 gm Q12H IVPB 04/26/24 14:00 05/06/24 13:59 04/26/24 14:53 1 GM Furosemide (LASix 20MG VIAL) 20 mg Q8H IV 04/26/24 16:30 05/26/24 16:29 Home Med (Home Medication) (Tafamidis (Vyndamax) 61 MG) DAILY PO 04/27/24 09:00 05/27/24 08:59 Ipratropium [place] (AtrovENT UD) 0.5 mg [id number] IH 04/26/24 18:00 05/26/24 17:59 04/26/24 19:46 0.5 MG Metoprolol Tartrate (loprESSOR) 25 mg BID PO 04/26/24 21:00 05/26/24 20:59 Nitroglycerin (Nitrostat) 0.4 mg AD PRN SL CHEST PAIN 04/26/24 14:30 05/26/24 14:29 Ondansetron HCl (zoFRAN 4MG INJ) 4 mg Q6H PRN IVP NAUSEA/VOMITING 04/26/24 14:00 05/26/24 13:59 Pantoprazole Sodium (PROTonix 40MG INJ) 40 mg Q24H IVP 04/26/24 14:30 05/26/24 14:29 04/26/24 14:53 40 MG Potassium Chloride (K-Dur/Klor-Con 20meq) 20 meq BID PO 04/26/24 21:00 05/26/24 20:59 Spironolactone (Aldactone 25mg) 25 mg AM PO 04/27/24 09:00 05/27/24 08:59 DIAGNOSTICS / RADIOLOGY: SERVICE REASON: CHEST PAIN ORDERING PHYSICIAN: LENY JIMENEZ MD PROCEDURE: CXR1VW - CHEST 1VW CHEST 1VW CLINICAL HISTORY: CHEST PAIN COMPARISON: 06/27/2022 TECHNIQUE: Single view of the chest was obtained. FINDINGS: Lungs are clear. Cardiac size is enlarged but stable. The bony structures and pacemaker are unchanged. IMPRESSION: Cardiomegaly. DICTATED BY: SONJA HARDING DO DATE: 04/26/24 1051 ELECTRONICALLY SIGNED BY: SONJA HARDING DO DATE: 04/26/24 105 ASSESSMENT: Acute on chronic chronic diastolic heart failure exacerbation, POA Underlying history of cardiac amyloidosis, POA Atypical chest pain, POA Developing cellulitis of the bilateral lower extremities with underlying history of lower extremity venous stasis/edema, POA Severe iron deficiency anemia, POA Frailty, POA CKD stage 3, POA Hypertension, POA Hyperlipidemia, POA History of severe aortic stenosis status post bioprosthetic aortic valve replacement with left atrial appendage ligation and Maze Ga procedure, 02/2008 History of paroxysmal atrial fibrillation, POA History of IVC filter placement, POA Remote history of gastric sleeve surgery in 2009, POA History of ectatic aortic root measuring 5.[address] chest from 09/2018, POA History of pacemaker placement, POA PLAN: Patient will be admitted to cardiac telemetry floor We will trend troponin to rule out active ACS Patient received IV Lasix 40 mg in the ER with urine output of about 2 L, we will start IV diuresis with Lasix 20 mg q.8 hours Continue with home dose potassium of 20 mEq b.i.d., maintain magnesium greater than two Patient has a history of lower extremity venous stasis with erythema, patient may be developing superimposed cellulitis as well, we will start patient on IV Rocephin 1 g b.i.d. Appreciate recommendations by Dr. Swanson with Cardiology We will obtain 2D echocardiogram Patient with rhonchorous breath sounds with wheezing and tachypnea on examination, symptoms are improving after IV Lasix, likely secondary to pulmonary edema, we will start patient on Pulmicort and Atrovent, we will have pulmonology follow up with this patient Home medications were reconciled and updated All labs will be repeated in the morning With regards to iron deficiency anemia, we will start patient on IV iron sucrose infusion while inpatient DVT prophylaxis with Lovenox renally dose, GI prophylaxis with Protonix Date of service: 04/26/2024 Anticipate hospitalization for at least 48 hours, Bran Parker MD Advanced Care Planning: Which of the following were discussed: Hospice care: Yes __ No _X_ Therapeutic options: Yes _X_ No __ Advance directives: Yes _X_ No __ Other discussions: Discussed with who?: Patient Voluntary nature of this service was explained to the patient? Yes _x_ No __ Amount of time spent: 20 minutes BRAN PARKER MD Apr 26, 2024 20:20
--- NOTE | 2024-04-26 20:54 | EKG ---
[facility] Test Date: 2024-04-26 Test Time: 09:39:18 Pat Name: ELLEN NEWELL Department: [facility]IP Room: ED 17 Gender: M Enamel Buffer: [id number] : 1945 Requested By: LENY JIMENEZ Order Number: [id number] Reading MD: Johanny Hill Measurements Intervals [place] Rate: 82 P: 0 ND: 58 QRS: -45 QRSD: 166 T: -20 QT: 403 QTc: 510 Interpretive Statements Ventricular-paced complexes Compared to ECG 06/28/2022 07:42:09 No significant changes Electronically Signed On 04-27-2024 09:15:39 INTERNATIONAL MARKETING MANAGER by Johanny Hill Please click the below link to view image of tracing.
[2024-04-26] MEDS: metoPROLOL tartRATE 25 MG TAB PO SCH (20:59)
[2024-04-26] MEDS: PoTASSium chloRIDE 20MEQ ER 20 MEQ ERTAB PO SCH (21:04)
--- NOTE | 2024-04-26 21:08 | CONS ---
[facility] CONSULTATION NOTE Date Patient Seen: Apr 26, 2024 Time of Visit: 20:55 Supervising Physician: Dr. Romel Kirk Reason for Consultation: Dyspnea evaluation Consulting Physician: Dr Parker Outpatient Specialists: [ ] Inpatient Consults: Cardiology, [facility] pulmonology PROBLEM LIST: Acute dyspnea, might be related to longstanding CHF, we will await 2D echo report, if continued to be dyspneic we will recommend CTA of the chest, POA Acute chest pain, POA CHF, POA Atrial fibrillation, rate controlled at this time, status post pacemaker placement History of cardiac amyloidosis History of severe aortic stenosis as she is/B aortic valve replacement PLAN: Admit per primary DuoNeb q.6 for shortness of breaths Continue CPAP Continue incentive spirometry Deep breathing exercises PD/OT eval and treat We will await 2D echo report We will also recommend venous Doppler study of the lower extremities to rule out DVT If continued to be dyspneic or requiring more oxygen we will recommend CTA of the chest HPI: 79-year-old male past medical history of of cardiac amyloidosis, history of severe aortic stenosis status post bioprosthetic aortic valve replacement with concomitant Maze Ga procedure and left atrial appendage ligation in 02/2008, atrial fibrillation as s/p pacemaker placement, diastolic heart failure who presented to the ER with complaint of right-sided chest pain with associated periodic dyspnea. Patient has been having issues with right-sided chest pain for several days. He initially presented to OSH in [place] . According to him cardiac work up has been negative and was subsequently sent home. Patient continued to have intermittent episodes of right retrosternal pain which she described as moderate in intensity. On presentation to the hospital, patient was noted to be afebrile with T-max of 97.9 F, heart rate in the 50s-70's, one blood pressure of 118/77. Chest x-ray showed mild pulmonary vascular congestion. [place] [address], hemoglobin 10.7, platelet count of 898607. CMP remarkable for sodium of 136, potassium 4.5, chloride of 99, creatinine 1.5, BNP of 223. He was also found to have scattered wheezing. JAYDE pulmonology was then consulted for dyspnea evaluation. Patient was seen and examined in ED with present at bedside. At present patient is currently hemodynamically stable, on room air with appropriate oxygen saturation, with no overt signs of increased work of breathing, or retraction. On auscultation patient has clear bilateral lung sounds. 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 Patient denies any secondhand smoking, or exposure to fumes, also denies any COVID or recent pneumonia. Patient was diagnosed with BONIFACIO and he uses his CPAP intermittently. PAST MEDICAL HX: see above PAST SURGICAL HX: noncontributory SOCIAL HISTORY: No tobacco, ETOH, or illicit drug use Coded Allergies: No Known Drug Allergies (Verified Allergy, Unknown, 11/26/17) triamcinolone (Unverified Allergy, Unknown, 11/26/17) REVIEW OF SYSTEMS: 12 point ROS reviewed with patient. Pertinent positives mentioned above. Otherwise negative. PHYSICAL EXAM: GENERAL: alert, weak, awake oriented x 3 HEENT: EOMI, Sclera non icteric, moist mucosa NECK: Supple, no JVD, trachea midline LUNGS: Clear breath sounds bilaterally. No wheezes HEART: Regular rate and rhythm. Normal S1 and S2, without murmurs ABD: Abdomen soft, nontender. Bowel sounds present EXT: No clubbing cyanosis 1+ pitting edema, diffuse discoloration of bilateral lower extremity NEURO: Alert and oriented to person, follows commands Vital Signs (last 8hr) Date Time Temp Pulse Resp B/P (MAP) Pulse Ox O2 Delivery O2 Flow Rate FiO2 04/26/24 19:56 97.3 84 17 118/71 100 Room Air* 0 21 04/26/24 19:46 79 18 N/A Room Air 0.0 21 04/26/24 19:46 79 18 04/26/24 18:43 97.9 72 18 113/72 99 Room Air* 0 21 04/26/24 16:39 18 N/A Room Air 21 04/26/24 15:06 97.7 59 20 112/55 100 Room Air* 0 21 LABS: Hematology Labs: Test 04/26/24 09:57 Range/Units White Blood Count 10.2 4.8-10.8 K/uL Red Blood Count 5.35 4.50-6.20 MIL/uL Hemoglobin 10.7 L 14.0-18.0 g/dL Hematocrit 36.5 L 42-54 % Mean Corpuscular Volume 68.2 L 79-99 fL Mean Corpuscular Hemoglobin 20.0 L 27.0-33.0 pg Mean Corpuscular Hemoglobin Concent 29.3 L 32.0-36.0 g/dL Red Cell Distribution Width 20.4 H 11.0-15.5 % Platelet Count 219 130-400 K/uL Mean Platelet Volume 7.5-10.5 fL Immature Granulocyte % (Auto) 0.6 0-1 % Neutrophils (%) (Auto) 73.0 40.0-77.0 % Lymphocytes (%) (Auto) 14.4 L 21.0-51.0 % Monocytes (%) (Auto) 10.4 3.0-13.0 % Eosinophils (%) (Auto) 1.2 0.0-8.0 % Basophils (%) (Auto) 0.4 0.0-5.0 % Neutrophils # (Auto) 7.5 1.8-7.7 K/uL Lymphocytes # (Auto) 1.5 1.0-4.8 K/uL Monocytes # (Auto) 1.1 H 0.1-1.0 K/uL Eosinophils # (Auto) 0.12 0.00-0.70 K/uL Basophils # (Auto) 0.04 0.00-0.20 K/uL Absolute Immature Granulocyte (auto 0.06 0-1 K/uL Nucleated Red Blood Cells 0.0 0.0-0.19 % Red Blood Cell Morphology See comments Chemistry Labs: Test 04/26/24 16:09 04/26/24 10:18 04/26/24 09:57 Range/Units Sodium Level 137 136-145 mmol/L Potassium Level 3.8 3.5-5.1 mmol/L Chloride Level 98 L 101-111 mmol/L Carbon Dioxide Level 33 H 21-32 mmol/L Blood Urea Nitrogen 36 H 7-18 mg/dL Creatinine 1.4 H 0.5-1.3 mg/dL Glomerular Filtration Rate Calc 51 >90 mL/min Random Glucose 106 H 70-105 mg/dL Hemoglobin A1c 7.3 H 4.0-6.0 % Estimated Average Glucose (eAG) 163 H 70-126 mg/dL Total Calcium 9.1 8.5-10.1 mg/dL Magnesium Level 2.10 1.80-2.40 mg/dL Iron Level 17 #L 65-175 mcg/dL Total Iron Binding Capacity 404 250-450 mcg/dL Percent Iron Saturation 4.2 L 30-44 % Ferritin 16 L 30-400 ng/mL Total Creatine Kinase 51 21-232 U/L Troponin I High Sensitivity 32.2 4-75 ng/L C-Reactive Protein, Quantitative 4.30 H 0.5-3.0 mg/L Procalcitonin < 0.05 L 0.05-0.5 ng/mL Thyroid Stimulating Hormone (TSH) 4.29 H 0.36-3.74 uIU/mL Troponin I < 0.05 0.00-0.05 ng/mL B-Type Natriuretic Peptide 223 H 0-100 pg/mL DIAGNOSTICS / RADIOLOGY RESULTS: US VENOUS DOPPLER BILATERAL REASON: lower extremity erythema, r/o any DVT COMPARISON: None Technique: Bilateral venous doppler ultrasound was performed with spectral analysis and color flow imaging technique. FINDINGS: There is a normal appearance of the common femoral, deep femoral, the profunda femoris and popliteal veins. Proximal calf veins appear normal as well. There is normal response to compression and augmentation. There is no evidence of deep venous thrombosis. IMPRESSION: Normal bilateral lower extremity venous Doppler ultrasound. CHEST 1VW CLINICAL HISTORY: CHEST PAIN COMPARISON: 06/27/2022 TECHNIQUE: Single view of the chest was obtained. FINDINGS: Lungs are clear. Cardiac size is enlarged but stable. The bony structures and pacemaker are unchanged. IMPRESSION: Cardiomegaly. PLAN NEURO: Minimize central acting medications as possible. Maintain fall precautions, adequate lighting during the day PULMONARY: Supplemental 02 as needed. Maintain aspiration precautions at all times CARDIOVASCULAR: Follow hemodynamics. Vital signs per facility protocol GI & NUTRITION: Continue with nutritional support. Continue stool softeners and laxatives as needed. KIDNEYS & ELECTROLYTES: Strict monitoring of intake, output and overall fluid balance. Avoid nephrotoxic medications to the extent possible. Medications to be dosed according to renal function. Monitor electrolytes and replace as needed ENDOCRINE: Maintain blood glucose between 100-180 at all times. Hypoglycemia protocol in place INFECTIOUS DISEASE: Trend temperature, WBC and procalcitonin level Follow cultures, deescalate antibiotics as soon as possible. Panculture if new onset fever ONCOLOGY/HEMATOLOGY/COAGULATION: Monitor for s/s of bleeding Monitor hemoglobin, coagulation studies as needed SKIN: Pressure ulcer prevention per facility protocol Specialty mattress ORTHO/REHAB: Continue PT/OT Prophylaxis: Continue GI and DVT prophylaxis Code Status: Full Resuscitation Disposition: TBD Other: Total patient care time exceeds 35 minutes excluding all procedures. Supervising physician: ARIELLA Glez APRN Apr 26, 2024 21:07
[2024-04-27 00:37] VITALS: PULSE 91; RESP 20; O2SAT 99
[2024-04-27] MEDS ORDERED: COMPOUND IV MISC 1 EACH IVSOLN MISC PRN (02:30)
[2024-04-27] MEDS ORDERED: COMPOUND IV REFRIGERATED 1 EACH IVSOLN MISC PRN (02:30)
[2024-04-27 06:53] LABS: BASOPHILS # (AUTO) 0.03 K/uL (0.00-0.20); BASOPHILS % (AUTO) 0.3 % (0.0-5.0); EOSINOPHILS # (AUTO) 0.15 K/uL (0.00-0.70); EOSINOPHILS % (AUTO) 1.5 % (0.0-8.0); HEMATOCRIT 35.7 % (42-54); IMMATURE GRANULOCYTE ABSOLUTE 0.05 K/uL (0-1); LYMPHOCYTES # (AUTO) 1.5 K/uL (1.0-4.8); LYMPHOCYTES % (AUTO) 15.3 % (21.0-51.0); MEAN CORPUSCULAR HEMOGLOBIN 19.8 pg (27.0-33.0); MEAN CORPUSCULAR HGB CONC 28.6 g/dL (32.0-36.0); MEAN CORPUSCULAR VOLUME 69.5 fL (79-99); MONOCYTES # (AUTO) 1.2 K/uL (0.1-1.0); MONOCYTES % (AUTO) 11.6 % (3.0-13.0); NEUTROPHILS # (AUTO) 7.2 K/uL (1.8-7.7); NEUTROPHILS % (AUTO) 70.8 % (40.0-77.0); PLATELET COUNT (AUTO) 201 K/uL (130-400); RED BLOOD CELL COUNT(AUTO) 5.14 MIL/uL (4.50-6.20); RED CELL DISTRIBUTION WIDTH 20.2 % (11.0-15.5); WHITE BLOOD COUNT (AUTO) 10.1 K/uL (4.8-10.8)
[2024-04-27 07:17] LABS: ALBUMIN 3.4 g/dL (3.5-5.0); BILIRUBIN,TOTAL 0.8 mg/dL (0.2-1.0); CREATININE 1.4 mg/dL (0.5-1.3); MAGNESIUM 2.1 mg/dL (1.80-2.40); TOTAL PROTEIN, SERUM 7.5 g/dL (6.0-8.3)
[2024-04-27 07:29] VITALS: PULSE 89; RESP 20; O2SAT 96
[2024-04-27 07:55] VITALS: TEMP 98.1
[2024-04-27] MEDS ORDERED: TAFAMIDIS 61 MG PO SCH (09:00)
[2024-04-27] MEDS: SPIRONOLACTONE 25 MG TAB PO SCH (09:12)
[2024-04-27] MEDS: atorVAStatin 20 MG TABLET PO SCH (09:13)
[2024-04-27] MEDS: MULTIVITAMIN TABLET PO SCH (09:13)
[2024-04-27] MEDS: ASPIRIN 81 MG EC TAB PO SCH (09:13)
[2024-04-27 09:24] VITALS: BP 137/74; PULSE 74; RESP 20; O2SAT 98
--- NOTE | 2024-04-27 09:25 | NUR ---
PT VOICED HE WANTS TO LEAVE AMA DUE TO THE COLD WEATHER AND BECAUSE HE LIVES IN [place]. MADE PT AWARE OF RISKS AND STUDIES PENDING DURING HIS STAY. PT REPORTS HE STILL WANTS TO LEAVE. WILL MAKE ADMITTING GROUP AWARE. PT SIGNED AMA FORM, PLACED IN PTS CHART.
--- NOTE | 2024-04-27 09:32 | HMCSR ---
APPROVED REPORT EXAM: Two-dimensional and M-mode echocardiogram with Doppler and color Doppler. INDICATION ICD: HEART FAILURE EXACERBATION 2D Dimensions RVDd5.7 cmLVEF(%)47.4 (>50%)LVED Vol(simp.)148.0 mL IVSd1.3 (0.7-1.1cm)FS(%)24 %LVES Vol(simp.)79.0 mL LVDd5.4 (3.8-5.6cm)LA (2D)5.5 (1.6-4.0cm)LVEF(%, simp.)47 % PWd1.6 (0.7-1.1cm)Ao Root(2D)4.9 (2.0-3.7cm)LA ESV INDEX (4CH)73.00 mL/m2 IVSs1.6 cmLVOT diam2.9 (1.8-2.4cm)LA ESV INDEX (2CH)54.80 mL/m2 LVDs4.1 (2.5-4.0cm)IVC diam2.5 cmLA ESV INDEX (BP)66.50 mL/m2 PWs2.1 cm M-Mode Dimensions EPSS1.0 cm LA (MM)4.7 (1.6-4.0cm) Ao Root(MM)5.2 (2.0-3.7cm) Aortic Valve AoV VTI0.6 mAo Peak GR33.0 mmHgLVOT VTI0.24 m LENARD (VMAX)2.6 cm2Ao Mean GR21.0 mmHgAVA (VTI) 2.6 cm2 Mitral Valve MV E Vmax83.9 cm/sDECEL Hsdp210 ms MV A Vmax29.6 cm/sP 1/2 T71 ms E/A ratio2.8MVA (PHT)3.1 cm2 MR Max PG23 mmHg TDI E/E' [place]54.8E/E' Goetqkr45.0 Medial E' Peak V5.00 cm/sLateral E' Peak V7.60 cm/s Left Ventricle Left ventricular cavity size is normal. Mild concentric left ventricular hypertrophy. LVEF is 45-50%. Indeterminate diastolic function. Right Ventricle The right ventricle is moderately dilated. The right ventricular systolic function is normal. Atria The left atrium is severely dilated. The right atrium is severely dilated. Aortic Valve The aortic valve is calcified and displays decreased opening. The aortic valve cusps are not well vis ualized. No aortic regurgitation is present. There is mild to moderate valvular aortic stenosis. High est mean aortic valve gradient is 21mmHg. Peak aortic valve gradient is 33mmHg. Mitral Valve Mitral valve leaflets open well. Mitral regurgitation is trace. There is no mitral valve stenosis. Tricuspid Valve The tricuspid valve leaflets appear normal. There is trace tricuspid valve regurgitation noted. Pulmonic Valve The pulmonary valve is not well visualized. There is no pulmonic valvular regurgitation. Great Vessels Aortic root is moderately dilated. IVC is dilated and collapses >50% with inspiration. Pericardium No pericardial effusion. Other Information Quality : FairRhythm : NSR Conclusion LVEF is 45-50%. Mild concentric left ventricular hypertrophy. Indeterminate diastolic function. The right ventricle is moderately dilated. Severe biatrial enlargement Mild to moderate aortic stenosis. Vpk 3 m/s, pk/mn gradients of 33/21 mmHg.
--- NOTE | 2024-04-27 10:33 | NUR ---
RECIEVED PT 10:00, PER REPORT PT HAD BEEN WANTING TO LEAVE AMA, ALL RISKS EXPLAINED TO HIM. PT'S DAUGHTER ARRIVED NOW AND AT PT'S SIDE, PT GIVEN ANOTHER EXPLANATION OF RISKS OF LEAVAVING AGAINST DOCTOR'S ADVICE INCLUDING WORSENING OF CONDITION AND POSSIBLY EVEN , PT VERBALIZED UNDERSTANDING, FORM SIGNED AND PLACED IN CHART.
--- NOTE | 2024-04-27 10:36 | NUR ---
LATE ENTRY, PT IS AWAKE, ALERT AND ORIENTED X4.
[2024-04-27] MEDS ORDERED: IRON sUCROse COMPLEX 300 MG in 0.9% NACL 250ML 250 ML IV SCH (11:00)
--- NOTE | 2024-04-27 11:35 | NUR ---
HOSPITALIST RESIDENT DR. CORBIN MADE AWARE OF PT LEAVING AMA
--- NOTE | 2024-04-27 14:52 | PN ---
[facility] Cardiology Progress Note PROBLEM LIST: Unstable angina Amyloidosis and amyloid cardiomyopathy Paroxysmal atrial fibrillation History of DC cardioversion 2008 Acute on chronic systolic CHF 2D echo on 04/26 with EF 45-50% and [id number] with peak and mean of 33 and 21 mm Hg History of bioprosthetic AVR with Maze procedure and LA ligation February echo, EF 50-55%, functioning bioprosthetic AVR, mild MR Biventricular Medtronic pacemaker change out June 28, 2022 CardioMEMS placement and used in July 2020 History of prostate cancer Lumbosacral disc disease INTERVAL HISTORY: [Home medications include metolazone 2.5 mg daily, torsemide 20 mg b.i.d., spironolactone. He is -4 L fluid deficit.] PHYSICAL EXAMINATION: Vital Signs (Last 48hrs) Date Time Temp Pulse Resp B/P (MAP) Pulse Ox O2 Delivery O2 Flow Rate FiO2 04/27/24 09:24 74 20 137/74 98 Room Air* 0 04/27/24 07:55 98.1 85 20 136/74 99 Room Air* 0 04/27/24 07:29 89 20 N/A Room Air 0.0 04/27/24 07:29 89 20 04/27/24 05:04 97.9 84 20 113/81 96 Room Air* 0 04/27/24 02:00 98.1 90 17 112/63 98 Room Air* 0 04/27/24 00:37 91 20 N/A Room Air 0.0 04/27/24 00:37 91 20 04/27/24 00:00 97.9 94 18 101/51 99 Room Air* 0 04/26/24 22:00 97.5 89 16 101/56 97 Room Air* 0 04/26/24 19:56 97.3 84 17 118/71 100 Room Air* 0 04/26/24 19:46 79 18 N/A Room Air 0.0 04/26/24 19:46 79 18 04/26/24 18:43 97.9 72 18 113/72 99 Room Air* 0 04/26/24 16:39 18 N/A Room Air 04/26/24 15:06 97.7 59 20 112/55 100 Room Air* 0 04/26/24 12:39 97.9 53 20 118/77 98 Room Air* 0 21 04/26/24 10:16 98.1 89 23 126/73 100 Nasal Cannula* 2 28 04/26/24 09:39 98.1 53 16 112/59 99 Room Air* 0 21 04/26/24 09:33 98.1 53 16 112/59 99 Room Air 0 General: Resting comfortably, no acute distress. HEENT: Atraumatic. Hearing is intact. No facial asymmetry, nasal discharge, icterus or lid lag. Cardiovascular: Rhythm and rate regular. No murmur No edema. Respiratory: Lungs clear to the bases. No retractions, wheezes or rhonchi. Gastrointestinal: Benign, soft, nontender, nondistended. Extremities: No amputations. Range of motion is grossly normal. Neurology/Psychiatry: No tremors. Speech is clear. Alert and oriented x 3. Cooperative and pleasant. LABORATORY DATA: [] RADIOLOGY: [] PLAN: [Patient left AMA before he could be evaluated in the emergency room setting] LENY MONTEIRO Apr 27, 2024 14:52 UGO MEDINA MD Apr 29, 2024 09:51
--- NOTE | 2024-04-27 15:50 | PN ---
[facility] PROGRESS NOTE Date Patient Seen: Apr 27, 2024 Time of Visit: 15:50 Supervising Physician: Dr. Darrion Mcmanus Consulting Physician: Dr Parker Outpatient Specialists: [ ] Inpatient Consults: Cardiology, [facility] pulmonology PROBLEM LIST: Patient was evaluated at bedside today, he is currently on room air and denies any episodes of shortness of breath or chest pain. Lower extremity Doppler shows no sign of DVT. Chest x-ray shows cardiomegaly with no acute pulmonary findings. Patient continues on nebulizer treatments and Rocephin. Currently being diuresed with Lasix 20 mg q.8 hours. Recommendations to continue with incentive spirometry and follow recommendations from Cardiology at this time. Dyspnea likely related to CHF. Patient should continue CPAP throughout the admission. PLAN: Follow cardiology recommendations DuoNeb q.6 for shortness of breaths Continue CPAP Continue incentive spirometry Deep breathing exercises PD/OT eval and treat Lower extremity venous Dopplers negative for DVT If continued to be dyspneic or requiring more oxygen we will recommend CTA of the chest INTERVAL HISTORY: [ ] REVIEW OF SYSTEMS: 12 point ROS reviewed with patient. Pertinent positives mentioned above. Otherwise negative. PHYSICAL EXAM: GENERAL: alert, weak, awake oriented x 3 HEENT: EOMI, Sclera non icteric, moist mucosa NECK: Supple, no JVD, trachea midline LUNGS: Clear breath sounds bilaterally. No wheezes HEART: Regular rate and rhythm. Normal S1 and S2, without murmurs ABD: Abdomen soft, nontender. Bowel sounds present EXT: No clubbing cyanosis 1+ pitting edema, diffuse discoloration of bilateral lower extremity NEURO: Alert and oriented to person, follows commands Vital Signs (last 8hr) Date Time Temp Pulse Resp B/P (MAP) Pulse Ox O2 Delivery O2 Flow Rate FiO2 04/27/24 09:24 74 20 137/74 98 Room Air* 0 21 04/27/24 07:55 98.1 85 20 136/74 99 Room Air* 0 21 LABS: Hematology Labs: Test 04/27/24 06:22 04/26/24 09:57 Range/Units White Blood Count 10.1 4.8-10.8 K/uL Red Blood Count 5.14 4.50-6.20 MIL/uL Hemoglobin 10.2 L 14.0-18.0 g/dL Hematocrit 35.7 L 42-54 % Mean Corpuscular Volume 69.5 L 79-99 fL Mean Corpuscular Hemoglobin 19.8 L 27.0-33.0 pg Mean Corpuscular Hemoglobin Concent 28.6 L 32.0-36.0 g/dL Red Cell Distribution Width 20.2 H 11.0-15.5 % Platelet Count 201 130-400 K/uL Mean Platelet Volume 10.0 7.5-10.5 fL Immature Granulocyte % (Auto) 0.5 0-1 % Neutrophils (%) (Auto) 70.8 40.0-77.0 % Lymphocytes (%) (Auto) 15.3 L 21.0-51.0 % Monocytes (%) (Auto) 11.6 3.0-13.0 % Eosinophils (%) (Auto) 1.5 0.0-8.0 % Basophils (%) (Auto) 0.3 0.0-5.0 % Neutrophils # (Auto) 7.2 1.8-7.7 K/uL Lymphocytes # (Auto) 1.5 1.0-4.8 K/uL Monocytes # (Auto) 1.2 H 0.1-1.0 K/uL Eosinophils # (Auto) 0.15 0.00-0.70 K/uL Basophils # (Auto) 0.03 0.00-0.20 K/uL Absolute Immature Granulocyte (auto 0.05 0-1 K/uL Nucleated Red Blood Cells 0.0 0.0-0.19 % Red Blood Cell Morphology See comments Chemistry Labs: Test 04/27/24 06:22 04/26/24 20:27 04/26/24 16:09 04/26/24 10:18 Range/Units Sodium Level 136 136-145 mmol/L Potassium Level 4.0 3.5-5.1 mmol/L Chloride Level 97 L 101-111 mmol/L Carbon Dioxide Level 31 21-32 mmol/L Blood Urea Nitrogen 35 H 7-18 mg/dL Creatinine 1.4 H 0.5-1.3 mg/dL Glomerular Filtration Rate Calc 51 >90 mL/min Random Glucose 133 H 70-105 mg/dL Total Calcium 9.2 8.5-10.1 mg/dL Magnesium Level 2.10 1.80-2.40 mg/dL Total Bilirubin 0.8 0.2-1.0 mg/dL Aspartate Amino Transf (AST/SGOT) 19 10-37 U/L Alanine Aminotransferase (ALT/SGPT) 18 12-78 U/L Alkaline Phosphatase 105 50-136 U/L Total Protein 7.5 6.0-8.3 g/dL Albumin 3.4 L 3.5-5.0 g/dL Total Creatine Kinase 55 21-232 U/L Troponin I High Sensitivity 35.5 4-75 ng/L Hemoglobin A1c 7.3 H 4.0-6.0 % Estimated Average Glucose (eAG) 163 H 70-126 mg/dL Iron Level 17 #L 65-175 mcg/dL Total Iron Binding Capacity 404 250-450 mcg/dL Percent Iron Saturation 4.2 L 30-44 % Ferritin 16 L 30-400 ng/mL C-Reactive Protein, Quantitative 4.30 H 0.5-3.0 mg/L Procalcitonin < 0.05 L 0.05-0.5 ng/mL Thyroid Stimulating Hormone (TSH) 4.29 H 0.36-3.74 uIU/mL Troponin I < 0.05 0.00-0.05 ng/mL Test 04/26/24 09:57 Range/Units B-Type Natriuretic Peptide 223 H 0-100 pg/mL DIAGNOSTICS / RADIOLOGY RESULTS: [ ] PLAN NEURO: Minimize central acting medications as possible. Maintain fall precautions, adequate lighting during the day PULMONARY: Supplemental 02 as needed. Maintain aspiration precautions at all times CARDIOVASCULAR: Follow hemodynamics. Vital signs per facility protocol GI & NUTRITION: Continue with nutritional support. Continue stool softeners and laxatives as needed. KIDNEYS & ELECTROLYTES: Strict monitoring of intake, output and overall fluid balance. Avoid nephrotoxic medications to the extent possible. Medications to be dosed according to renal function. Monitor electrolytes and replace as needed ENDOCRINE: Maintain blood glucose between 100-180 at all times. Hypoglycemia protocol in place INFECTIOUS DISEASE: Trend temperature, WBC and procalcitonin level Follow cultures, deescalate antibiotics as soon as possible. Panculture if new onset fever ONCOLOGY/HEMATOLOGY/COAGULATION: Monitor for s/s of bleeding Monitor hemoglobin, coagulation studies as needed SKIN: Pressure ulcer prevention per facility protocol Specialty mattress ORTHO/REHAB: Continue PT/OT Prophylaxis: Continue GI and DVT prophylaxis Code Status: Full Resuscitation Disposition: TBD Other: Total patient care time exceeds 35 minutes excluding all procedures. CAS AYALA Apr 27, 2024 15:50
[2024-04-28] MEDS ORDERED: ENOXAPARIN SODIUM 30 MG/0.3 ML SQ SCH (09:00)
[2024-04-28] MEDS ORDERED: atorVAStatin 20 MG TABLET PO SCH (21:00)
== END 2024-04-27 10:40 | disposition left against medical advice (07) | DRG 291 ==
LOC: EDH 09:32 → EDHIP 09:33 → UNDOADMIN 09:33 → EDHIP 14:02
PROVIDERS: ADMIT Internal Medicine; ATTEND Internal Medicine
DX: I13.0 Hypertensive heart and chronic kidney disease with heart failure and stage 1 through stage 4 chronic kidney disease, or unspecified chronic kidney disease (principal); I50.43 Acute on chronic combined systolic (congestive) and diastolic (congestive) heart failure; L03.115 Cellulitis of right lower limb; E85.4 Organ-limited amyloidosis; L03.116 Cellulitis of left lower limb; I20.0 Unstable angina; I43 Cardiomyopathy in diseases classified elsewhere; I48.0 Paroxysmal atrial fibrillation; I87.8 Other specified disorders of veins; M51.9 Unspecified thoracic, thoracolumbar and lumbosacral intervertebral disc disorder; N18.30 Chronic kidney disease, stage 3 unspecified; D50.9 Iron deficiency anemia, unspecified; E03.9 Hypothyroidism, unspecified; E78.00 Pure hypercholesterolemia, unspecified; Z96.653 Presence of artificial knee joint, bilateral; Z92.3 Personal history of irradiation; Z95.0 Presence of cardiac pacemaker; Z95.3 Presence of xenogenic heart valve; Z95.828 Presence of other vascular implants and grafts; Z98.84 Bariatric surgery status; Z85.46 Personal history of malignant neoplasm of prostate
CPT/HCPCS: 36415; 71045; 80048; 80053; 81003; 82550; 82728; 83036; 83540; 83550; 83735; 83880; 84145; 84443; 84484; 85025; 86140; 87635; 87804; 93005; 93306; 93970; 94640; 94664; G0378; J0696; J1756; J1940; J2270; J2470; J7050